=== PATIENT | male | born 1960 | race Two or more races ===

== ENCOUNTER 2020-09-10 15:14 | Outpatient (CLI) | payer OTHER | END 2020-09-10 16:02 | disposition home or self-care (01) | LOC: OFIC 805 15:14 | PROVIDERS: ATTEND Otolaryngology Otology & Neurotology | DX: H60.8X1 Other otitis externa, right ear (principal); H92.03 Otalgia, bilateral; H93.8X3 Other specified disorders of ear, bilateral; H61.23 Impacted cerumen, bilateral ==